=== PATIENT | male | born 1980 | race Caucasian/White ===

== ENCOUNTER 2022-05-28 09:21 | Emergency (ER) | payer BC ==
[2022-05-28] MEDS ORDERED: PREDNISONE 10 M10 MG PO (10:17)
== END 2022-05-28 10:40 | disposition home or self-care (01) ==
LOC: ER1 09:21
DX: T63.441A Toxic effect of venom of bees, accidental (unintentional), initial encounter (principal); R09.89 Other specified symptoms and signs involving the circulatory and respiratory systems; L53.9 Erythematous condition, unspecified; Z72.0 Tobacco use
CPT/HCPCS: 96374; 96375; 99282; J1200; J2930